=== PATIENT | male | born 2000 | race Caucasian/White ===

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

== ENCOUNTER 2022-11-04 19:34 | Emergency (ER) | payer MEDICAID, OTHER ==
[~2022-11-04] VITALS: Ht 177.8 cm; Wt 56.8 kg
[~2022-11-04 19:34] MED LIST changes: +CLIN-97 PO; -CLIN300C85 PO
--- NOTE | 2022-11-04 20:54 | NUR ---
Pt not in lobby unable to take VS
[2022-11-04 22:16] VITALS: BP 115/73; PULSE 58; RESP 18; TEMP 98.5; O2SAT 100
== END 2022-11-05 03:30 | disposition left against medical advice (07) ==
LOC: ER 19:35
DX: R00.2 Palpitations (principal); Z53.21 Procedure and treatment not carried out due to patient leaving prior to being seen by health care provider
CPT/HCPCS: 93005; 99281